=== PATIENT | female | born 2000 | race Caucasian/White ===

== ENCOUNTER 2018-08-18 00:57 | Emergency (ER) | payer OTHER ==
[~2018-08-18] VITALS: Ht 162.6 cm; Wt 63.4 kg
[2018-08-18 01:07] VITALS: Ht 162.6 cm; Wt 63.4 kg
[2018-08-18] MEDS ORDERED: ONDANSETRON 4 MG INJ IV STA (02:55)
[2018-08-18] MEDS ORDERED: SOD CHLORIDE 0.9% 1,000 ML IV STA (02:55)
[2018-08-18] MEDS ORDERED: morphine 4 MG/ML VIAL IV STA (02:55)
[2018-08-18] MEDS ORDERED: CEFTRIAXONE 1 GM/50 ML (PMX) 50 ML IVPB ONE (04:00)
[2018-08-18] MEDS ORDERED: PHEN-538 PO (05:02)
[2018-08-18] MEDS ORDERED: CEPH-443 PO (05:02)
--- NOTE | 2018-08-18 05:02 | ERD ---
ER Documentation Chief Complaint Chief Complaint LEFT LOWER BACK PAIN, DYSURIA, HEMATURIA X 5 DAYS HPI This is a 18-year-old female with a left lower back pain dysuria and hematuria for the past 5 days. Pain is mild to moderate intensity no exacerbating alleviating factors. Pain is mild to moderate intensity ROS All systems reviewed and are negative except as per history of present illness. Allergies Allergies: Coded Allergies: No Known Allergy (Unverified , 08/18/18) Physical Exam Vitals Vital Signs Date Temp Pulse Resp B/P (MAP) Pulse Ox O2 O2 Flow FiO2 Time Delivery Rate 08/18/18 98.1 74 16 123/74 100 01:07 (90) Physical Exam Const: No acute distress Head: Atraumatic Eyes: Normal Conjunctiva ENT: Normal External Ears, Nose and Mouth. Neck: Full range of motion. No meningismus. Resp: Clear to auscultation bilaterally Cardio: Regular rate and rhythm, no murmurs Abd: Soft, non tender, non distended. Normal bowel sounds Skin: No petechiae or rashes Back: No midline or flank tenderness Ext: No cyanosis, or edema Neur: Awake and alert Psych: Normal Mood and Affect Result Diagram: 08/18/18 03108/18/18 0319 Results 24 hrs Laboratory Tests Test 08/18/18 03:17 08/18/18 03:18 08/18/18 03:19 Bedside Urine pH (LAB) 7.0 Bedside Urine Protein (LAB) Trace Bedside Urine Glucose (UA) Negative Bedside Urine Ketones (LAB) Trace Bedside Urine Blood 1+ Bedside Urine Nitrite (LAB) Negative Bedside Urine Leukocyte Esterase 2+ (L Urine Color YELLOW Urine Clarity SLIGHTLY CLOUDY Urine pH 7.0 Urine Specific Letcher 1.008 Urine Ketones TRACE mg/dL Urine Nitrite NEGATIVE mg/dL Urine Bilirubin NEGATIVE mg/dL Urine Urobilinogen NEGATIVE mg/dL Urine Leukocyte Esterase 2+ Gretel/ul Urine Microscopic RBC 12 /HPF Urine Microscopic WBC 104 /HPF Urine Squamous Epithelial Cells FEW /HPF Urine Amorphous Crystals FEW /HPF Urine Bacteria FEW /HPF Urine Mucus FEW /HPF Urine Hemoglobin 1+ mg/dL Urine Glucose NEGATIVE mg/dL Urine Total Protein NEGATIVE mg/dl White Blood Count 12.8 10^3/ul Red Blood Count 4.47 10^6/ul Hemoglobin 14.0 g/dl Hematocrit 40.8 % Mean Corpuscular Volume 91.3 fl Mean Corpuscular Hemoglobin 31.3 pg Mean Corpuscular 34.3 g/dl Hemoglobin Concent Red Cell Distribution Width 11.9 % Platelet Count 331 10^3/UL Mean Platelet Volume 9.7 fl Immature Granulocytes % 0.400 % Neutrophils % 73.0 % Lymphocytes % 17.4 % Monocytes % 7.5 % Eosinophils % 1.3 % Basophils % 0.4 % Nucleated Red Blood Cells % 0.0 /100WBC Immature Granulocytes # 0.050 10^3/ul Neutrophils # 9.4 10^3/ul Lymphocytes # 2.2 10^3/ul Monocytes # 1.0 10^3/ul Eosinophils # 0.2 10^3/ul Basophils # 0.1 10^3/ul Nucleated Red Blood Cells # 0.0 10^3/ul Sodium Level 142 mmol/L Potassium Level 3.7 mmol/L Chloride Level 99 mmol/L Carbon Dioxide Level 29 mmol/L Anion Gap 14 Blood Urea Nitrogen 10 mg/dl Creatinine 0.67 mg/dl Est Glomerular Filtrat > 60 mL/min Rate mL/min Glucose Level 93 mg/dl Calcium Level 9.6 mg/dl Total Bilirubin 0.8 mg/dl Direct Bilirubin 0.00 mg/dl Indirect Bilirubin 0.8 mg/dl Aspartate Amino 18 IU/L Transf (AST/SGOT) Alanine 16 IU/L Aminotransferase (ALT/SGPT) Alkaline Phosphatase 97 IU/L Total Protein 7.2 g/dl Albumin 4.2 g/dl Globulin 3.00 g/dl Albumin/Globulin Ratio 1.40 Lipase 83 U/L POC Beta HCG, Qualitative NEGATIVE Current Medications Medications Dose Sig/Lorenza Start Time Status Last (Trade) Ordered Route PRN Stop Time Admin Dose Reason Admin Sodium 1,000 ml @ Q1H STAT 08/18/18 DC 08/18/18 Chloride 1,000 mls/hr IV 02:55 03:16 08/18/18 03:54 Morphine 4 mg ONCE STAT 08/18/18 DC 08/18/18 Sulfate IV 02:55 03:17 (morphine) 08/18/18 02:56 Ondansetron 4 mg ONCE STAT 08/18/18 DC 08/18/18 HCl (Zofran IV 02:55 03:16 Inj) 08/18/18 02:56 Ceftriaxone 50 ml @ ONCE ONCE 08/18/18 DC 08/18/18 Sodium 100 mls/hr IVPB 04:00 04:05 08/18/18 04:29 Procedures/MDM Medical decision making: This is a 18-year-old female comes in with hematuria and has evidence of urinary tract infection. CT scan shows no evidence of pyloric. At this point is clinically stable. Patient be discharged home with Keflex pending urine culture results. Follow with PCP. Return for worsening symptoms. No evidence of surgical abdomen on serial abdominal exams. Patient's gastrointestinal symptoms have stabilized while in the department. No evidence of severe dehydration, sepsis, or surgical abdomen. Extensive discussion with family and patient that occult disease cannot be ruled out. 8 hour recheck for repeat abdominal exam is planned. Departure Diagnosis: Primary Impression: Urinary tract infection Urinary tract infection type: site unspecified Hematuria presence: with hematuria Qualified Codes: N39.0 - Urinary tract infection, site not spec ified; R31.9 - Hematuria, unspecified Condition: HEATHER Bateman Aug 18, 2018 05:02
[2018-08-18 05:30] VITALS: BP 110/73; PULSE 68; RESP 18
== END 2018-08-18 06:54 | disposition home or self-care (01) ==
LOC: E/R 00:57
DX: N39.0 Urinary tract infection, site not specified (principal)
CPT/HCPCS: 36415; 74176; 80053; 81001; 81025; 83690; 85025; 87086; 96374; 96375; J0696; J2270; J2405; J7030; Z7502; 81003